=== PATIENT | female | born 1950 | race American Indian/Alaskan Native ===

== ENCOUNTER 2016-07-03 11:39 | Emergency (ER) | payer MEDICARE ==
[2016-07-03 16:08] LABS: Basophils % (Auto) 0.8 % (0.0-1.8); Hematocrit 36.4 % (30.3-42.9); Hemoglobin 11.6 gm/dl (10.1-14.3); Mean Corpuscular HGB Conc 32 % (30-34); Mean Corpuscular Hemoglobin 30 pg (28-32); Mean Corpuscular Volume 93 fl (79-97); Platelet Count 166 K/mm3 (140-440); White Blood Count 7.9 K/mm3 (4.5-11.0)
[2016-07-03 16:09] LABS: Red Cell Distribution Width 21.6 % (13.2-15.2)
[2016-07-03 16:15] LABS: BUN/Creatinine Ratio 2.66; Calcium 9.6 mg/dL (8.4-10.2); Chloride 95.3 mmol/L (98-107); Potassium 3.9 mmol/L (3.6-5.0)
[2016-07-03 16:18] LABS: INR 2.22 (0.87-1.13)
[2016-07-03 16:19] LABS: Partial Thromboplastin Time 47.3 Sec. (24.2-36.6)
[2016-07-03 17:54] VITALS: BP 92/47
--- NOTE | 2016-07-03 18:07 | Emergency Department Report ---
ED General Adult HPI - General Chief complaint: Extremity Injury, Upper Stated complaint: BLEEDING SHUNT Time Seen by Provider: 07/03/16 15:04 Source: patient, EMS Mode of arrival: Stretcher Limitations: Other - History of Present Illness Initial comments: The patient was successfully dialyzed yesterday. She's bit concerned about her medication dosing but tells me that she is taking 5 mg of Eloquist twice a day. This afternoon she had spontaneous bleeding from her left arm fistula. She has been compliant with her anticoagulation. Her last DVT was more than 3 years ago. She presented here for evaluation of bleeding fistula. There was no injury. A pressure dressing with an Harsha wrap was applied by nursing staff on the patient's arrival. The bleeding apparently subsided. -: Sudden Associated Symptoms: denies other symptoms Treatments Prior to Arrival: other - Related Data Home Medications Medication Instructions Recorded Confirmed Last Taken Apixaban [Eliquis] 1 tab PO BID 07/03/16 07/03/16 07/02/16 AtorvaSTATin [Lipitor] 1 tab PO DAILY 07/03/16 07/03/16 07/02/16 Calcium Acetate 667 mg PO DAILY 07/03/16 07/03/16 07/03/16 Dexamethasone [Decadron] 4 mg PO ONCE 07/03/16 07/03/16 07/03/16 Folic Acid/Vit B Comp W-C [Renal 1 cap PO QDAY 07/03/16 07/03/16 07/03/16 Caps] Midodrine HCl 10 mg PO TID 07/03/16 07/03/16 Unknown Pantoprazole [Protonix] 40 mg PO QDAY 07/03/16 07/03/16 07/02/16 Pregabalin [Lyrica] 100 mg PO BID 07/03/16 07/03/16 07/02/16 Thalidomide [Thalomid] 50 mg PO QHS 07/03/16 07/03/16 07/02/16 traMADol [Ultram] 50 mg PO Q6HR PRN 07/03/16 07/03/16 Unknown Allergies Allergy/AdvReac Type Severity Reaction Status Date / Time dopamine Allergy Shortness Verified 07/03/16 11:45 of Breath lisinopril [From Zestril] Allergy Rash Verified 07/03/16 11:45 niacin Allergy Seizure Verified 07/03/16 11:45 [From Niaspan Extended-Release] ED Review of Systems ROS: Stated complaint: BLEEDING SHUNT Other details as noted in HPI Comment: All other systems reviewed and negative ED Past Medical Hx - Past Medical History Previous Medical History?: Yes Hx Hypertension: Yes Hx Deep Vein Thrombosis: Yes Hx Renal Disease: Yes (HD m-W-F) Hx of Cancer: Yes (multiple myloma) Hx Arthritis: Yes (knees) Additional medical history: high cholesterol. On dialysis for multiple myeloma, hx. of hypotension - Surgical History Past Surgical History?: Yes Additional Surgical History: LUE fistula, Peritoneal catheter placed and removed , Hysterectomy, Nephrostomy tubes - Social History Smoking Status: Never Smoker Substance Use Type: Prescribed - Medications Home Medications: Home Medications Medication Instructions Recorded Confirmed Last Taken Type Apixaban [Eliquis] 1 tab PO BID 07/03/16 07/03/16 07/02/16 History AtorvaSTATin [Lipitor] 1 tab PO DAILY 07/03/16 07/03/16 07/02/16 History Calcium Acetate 667 mg PO DAILY 07/03/16 07/03/16 07/03/16 History Dexamethasone [Decadron] 4 mg PO ONCE 07/03/16 07/03/16 07/03/16 History Folic Acid/Vit B Comp W-C [Renal 1 cap PO QDAY 07/03/16 07/03/16 07/03/16 History Caps] Midodrine HCl 10 mg PO TID 07/03/16 07/03/16 Unknown History Pantoprazole [Protonix] 40 mg PO QDAY 07/03/16 07/03/16 07/02/16 History Pregabalin [Lyrica] 100 mg PO BID 07/03/16 07/03/16 07/02/16 History Thalidomide [Thalomid] 50 mg PO QHS 07/03/16 07/03/16 07/02/16 History traMADol [Ultram] 50 mg PO Q6HR PRN 07/03/16 07/03/16 Unknown History ED Physical Exam - General General appearance: alert, in no apparent distress - Head Head exam: Present: atraumatic, normocephalic - Eye Eye exam: Present: normal appearance - ENT ENT exam: Present: mucous membranes moist - Neck Neck exam: Present: normal inspection - Respiratory Respiratory exam: Present: normal lung sounds bilaterally. Absent: respiratory distress - Cardiovascular Cardiovascular Exam: Present: regular rate, normal rhythm. Absent: systolic murmur, diastolic murmur, rubs, gallop - GI/Abdominal GI/Abdominal exam: Present: soft, normal bowel sounds - Extremities Exam Extremities exam: Present: other (fistulous without significant bleeding. There is a pulse and a thrill.) - Back Exam Back exam: Present: normal inspection - Neurological Exam Neurological exam: Present: alert, oriented X3, other (no acute focal deficit) - Psychiatric Psychiatric exam: Present: normal affect, normal mood - Skin Skin exam: Present: warm, dry, intact, normal color. Absent: rash ED Course Vital Signs 07/03/16 07/03/16 07/03/16 11:45 11:52 12:00 Temperature 97.8 F Pulse Rate 74 69 Respiratory 16 12 Rate Blood Pressure 123/74 O2 Sat by Pulse 18 L 97 Oximetry 07/03/16 07/03/16 07/03/16 13:01 13:07 14:00 Temperature Pulse Rate 70 73 73 Respiratory 14 14 14 Rate Blood Pressure 121/76 O2 Sat by Pulse 97 98 96 Oximetry 07/03/16 07/03/16 07/03/16 14:27 15:00 15:17 Temperature Pulse Rate 77 77 Respiratory 18 15 15 Rate Blood Pressure 97/58 103/58 O2 Sat by Pulse 98 97 97 Oximetry 07/03/16 07/03/16 07/03/16 16:00 17:01 17:43 Temperature Pulse Rate 77 79 79 Respiratory 16 17 16 Rate Blood Pressure 90/56 53/28 92/47 O2 Sat by Pulse 99 99 97 Oximetry - Reevaluation(s) Reevaluation #1: the patient's left antecubital area was unwrapped. There was no additional bleeding. A Surgi-seal gauze and Graham was applied. She was observed in the emergency department no further bleeding. I think it would be judicious to decrease the patient's Eloquist to 2.5 mg a day. She may only be C7 but I think biologically she is more like 80 and perhaps that would reasonable to address the risk and benefit of continued anticoagulation. I'm going to recommend 2.5 mg twice a day at this point. However, I have asked the patient's daughter who is a nurse to coordinate this recommendation with the patient's anticoagulant care provider. 07/03/16 18:14 07/03/16 18:16 ED Medical Decision Making - Lab Data Result diagrams: 07/03/16 15:43 07/03/16 15:43 Laboratory Results - last 24 hr 07/03/16 07/03/16 07/03/16 15:43 15:43 15:43 WBC 7.9 RBC 3.90 Hgb 11.6 Hct 36.4 MCV 93 MCH 30 MCHC 32 RDW 21.6 H Plt Count 166 Lymph % (Auto) 20.3 Benton % (Auto) 11.0 H Eos % (Auto) 1.0 Baso % (Auto) 0.8 Lymph # 1.6 Benton # 0.9 H Eos # 0.1 Baso # 0.1 Seg Neutrophils % 66.9 Seg Neutrophils # 5.3 PT 24.7 H INR 2.22 H APTT 47.3 H Sodium 136 L Potassium 3.9 Chloride 95.3 L Carbon Dioxide 22 Anion Gap 23 BUN 20 H Creatinine 7.5 H Estimated GFR 7 BUN/Creatinine Ratio 2.66 Glucose 133 H Calcium 9.6 Critical care attestation.: If time is entered above; I have spent that time in minutes in the direct care of this critically ill patient, excluding procedure time. ED Disposition Clinical Impression: On continuous oral anticoagulation Bleeding from dialysis shunt Qualifiers: Encounter type: initial encounter Qualified Code(s): T82.838A - Hemorrhage due to vascular prosthetic devices, implants and grafts, initial encounter Disposition: DISCHARGED TO HOME OR SELFCARE Is pt being admited?: No Does the pt Need Aspirin: No Condition: Stable Instructions: End-Stage Kidney Disease (ED) Additional Instructions: Return any recurrent bleeding. I'm going to recommend [id number] with be decreased to 2.5 mg twice a day. That is my personal recommendation. However, please coordinate this with your anticoagulant care provider. Referrals: PRIMARY CARE, [Primary Care Provider] - 24 Hours Time of Disposition: 18:20
== END 2016-07-03 18:31 | disposition home or self-care (01) ==
LOC: ED 11:39
DX: T82.838A Hemorrhage due to vascular prosthetic devices, implants and grafts, initial encounter (principal); I10 Essential (primary) hypertension; M19.90 Unspecified osteoarthritis, unspecified site; E78.00 Pure hypercholesterolemia, unspecified; Z86.718 Personal history of other venous thrombosis and embolism; Z90.710 Acquired absence of both cervix and uterus; Z79.01 Long term (current) use of anticoagulants; Z88.8 Allergy status to other drugs, medicaments and biological substances; Y84.8 Other medical procedures as the cause of abnormal reaction of the patient, or of later complication, without mention of misadventure at the time of the procedure; Y92.89 Other specified places as the place of occurrence of the external cause
CPT/HCPCS: 36415; 80048; 85025; 85610; 85730; 99284